=== PATIENT | male | born 1985 | race Caucasian/White ===

== ENCOUNTER 2018-03-18 02:05 | Emergency (ER) | payer MEDICAID ==
[~2018-03-18] VITALS: Ht 170.2 cm; Wt 60.0 kg
[2018-03-18 02:56] VITALS: BP 123/75
== END 2018-03-18 02:58 | disposition home or self-care (01) ==
LOC: ED 02:52
DX: K42.9 Umbilical hernia without obstruction or gangrene (principal); F25.9 Schizoaffective disorder, unspecified
CPT/HCPCS: 99281